=== PATIENT | male | born 1955 | race Two or more races ===

== ENCOUNTER 2024-11-19 10:52 | Outpatient (RCR) | payer MEDICARE, MEDICAID, SELFPAY ==
--- NOTE | 2024-11-19 12:05 | PT.OIERPT ---
PT OP Initial Eval Patient Information Outpatient Physical Therapy Treatment Date: 11/19/24 Visit Reasons: poslaminectomy syndrome Medical Diagnosis: m96.1 Treatment Dx #1: Back Pain Treatment Dx #2: Difficulty Walking Start of Care: 11/19/24 Date of Onset: 6 months ago Smoking Status Smoking Status: Never smoker Initial Assessment Subjective: Pt is a 69 y/o male reports of balance deficits, difficulty walking, and progressive decondition ~ 6 months ago. Pt had back surgery and CVA in the past affecting his overall functional capacity. Pt has limitation with prolonged walking, standing, community outtings, and performing recreational activities. Objective: BUE AROM: all motions are WFL BUE MMTs: grossly 4/5 BLE AROM: all motions are WFL BLE MMTs: grossly 4-/5 Assessment: Pt demonstrate decrease endurance and balance deficits leading to difficulty with functional ADLs. Pt will benefit from a power w/c to help with community outings and ADLs independence Short Term and Unle[employer] Goals 1) Eval and D/C 2) Recommend Power W/C Treatment Plan Frequency and Duration: 1x Certification Dates: 11/19/24 to 02/18/25 Procedure Charges OP PT Eval Mod Complex 30 minutes: Yes
== END 2024-11-26 23:59 | disposition home or self-care (01) ==
LOC: CPTX 10:52
PROVIDERS: PCP Family Medicine; Referring Provider Family Medicine; Visit Provider Family Medicine
DX: M54.9 Dorsalgia, unspecified (principal); R26.2 Difficulty in walking, not elsewhere classified; R26.89 Other abnormalities of gait and mobility; M96.1 Postlaminectomy syndrome, not elsewhere classified
CPT/HCPCS: 97162